=== PATIENT | female | born 1940 | race Two or more races ===

== ENCOUNTER 2025-01-16 08:54 | Outpatient (CLI) | payer MEDICARE ==
[2025-01-16 10:11] LABS: Hematocrit 39.0 % (36.0-46.0); Hemoglobin 13.3 g/dL (12.2-16.2); Mean Corpuscular Hemoglobin 31.4 pg (28.0-32.0); Mean Corpuscular Volume 92.4 fL (80.0-100.0)
[2025-01-16 10:25] LABS: Urine Amorphous Crystal FEW /hpf (None Seen); Urine Protein, UAD Negative (Negative)
[2025-01-16 10:35] LABS: Alanine Aminotransferase 18 U/L (7-40); Alkaline Phosphatase 98 U/L (46-116); Anion Gap 9 (5-15); BUN/Creatinine Ratio 23.7 (10.0-20.0); Blood Urea Nitrogen 18 mg/dL (9-23); Calcium 10.0 mg/dL (8.7-10.4); Carbon Dioxide 27 mmol/L (20-31); Chloride 105 mmol/L (98-107); Glucose 89 mg/dL (74-106); Potassium 4.4 mmol/L (3.5-5.1); Sodium 141 mmol/L (136-145); Total Protein 6.8 g/dL (5.7-8.2); Triglycerides 66 mg/dL (< 150)
[2025-01-16 10:36] LABS: Bilirubin, Total 0.7 mg/dL (0.2-1.0)
[2025-01-16 10:37] LABS: Total Cells Counted 100.0 (100)
[2025-01-16 10:40] LABS: Cholesterol 202 mg/dL (< 200); HDL Cholesterol 76 mg/dL (40-59)
[2025-01-16 10:59] LABS: Albumin 4.5 g/dL (3.2-4.8)
[2025-01-16 11:10] LABS: Amphetamine Screen, Urine Neg (NEGATIVE); Barbiturate Scree,Urine Neg (NEGATIVE); Benzodiazephine Screen, Urine Neg (NEGATIVE); Cannabinoid Screen, Urine Neg (NEGATIVE); Cocaine Screen, Urine Neg (NEGATIVE); Opiate Scree,Urine Neg (NEGATIVE); Phencyclidine Screen, Urine Neg (NEGATIVE)
[2025-01-16 11:27] LABS: Hepatitis A Total Antibody Negative (Negative)
[2025-01-16 11:28] LABS: Hepatitis B Surface Antigen Negative (Negative); Hepatitis C Antibody Negative (Negative)
== END 2025-01-16 17:00 | disposition home or self-care (01) ==
LOC: LAB 08:54
PROVIDERS: ATTEND Licensed Practical Nurse
DX: I10 Essential (primary) hypertension (principal); E78.5 Hyperlipidemia, unspecified; E55.9 Vitamin D deficiency, unspecified; Z13.6 Encounter for screening for cardiovascular disorders; Z13.220 Encounter for screening for lipoid disorders; Z13.29 Encounter for screening for other suspected endocrine disorder; Z13.1 Encounter for screening for diabetes mellitus; Z00.00 Encounter for general adult medical examination without abnormal findings
CPT/HCPCS: 36415; 80053; 80061; 80307; 81001; 82274; 82306; 82607; 82746; 83036; 84443; 85007; 85027; 86704; 86706; 86708; 86803; 87340

== ENCOUNTER 2025-06-11 10:28 | Outpatient (CLI) | payer MEDICARE ==
[~2025-06-11] VITALS: Ht 167.6 cm; Wt 77.1 kg
[2025-06-11] MEDS: REGADENOSON 0.4 MG/5 ML SYRG IV ONE ×2 (12:30→12:33)
--- NOTE | 2025-06-11 14:38 | DVH ---
Reason for study/Clinical History: LEXISCAN Comparison Study: None Myocardial Perfusion Study with SPECT TECHNIQUE: The patient received an intravenous injection of 10 mCi of technetium-99m Sestamibi while at rest. After a short delay, SPECT tomographic images of the heart were obtained. The patient then went to the stress lab where they received an intravenous Lexiscan utilizing standard protocol. 30 mCi of technetium-99m Sestamibi was injected intravenously immediately after the start of the infusion. Gated SPECT tomographic images of the heart were acquired and processed. FINDINGS: Rotating planar images show no significant attenuation artifact. The left ventricular size is within normal limits. Stress tomographic images demonstrate normal perfusion. Resting tomographic images demonstrate a similar pattern. Gated portion of the study shows normal wall motion and myocardial thickening. The left ventricular ejection fraction is 74 %. (normal greater than 50%) IMPRESSION: Normal left ventricular size, wall motion, and function, without evidence of infarction or of myocardium at ischemic risk.The left ventricular ejection fraction is 74 %.
== END 2025-06-11 17:00 | disposition home or self-care (01) ==
LOC: XYW 10:28
PROVIDERS: ATTEND Internal Medicine
DX: R06.02 Shortness of breath (principal)
CPT/HCPCS: 78452; 93017; A9500; J2785